=== PATIENT | female | born 1980 | race Caucasian/White ===

== ENCOUNTER → 2019-06-05 | Outpatient (CLI) | payer SELFPAY ==
[2019-06-07 16:46] LABS: HPV Reflexed? NOT INDICATED
== END | disposition home or self-care (01) ==
LOC: LABSPEC 06-06 09:49
PROVIDERS: Visit Provider Obstetrics & Gynecology
DX: Z12.4 Encounter for screening for malignant neoplasm of cervix (principal)
CPT/HCPCS: 87624; 88175; G0145

== ENCOUNTER 2019-06-11 09:09 | Day surgery (SDC) | payer SELFPAY ==
[2019-06-08 15:22] LABS: Hematocrit 43.3 % (37-47); Hemoglobin 14.3 g/dL (12.0-15.0); Mean Corpuscular Volume 84.7 fL (81-99); Mean Platelet Vol. 9.7 fl (6.2-12.0); Platelet Count 308 K/mm3 (150-450); RBC Distribution Width CV 12.3 % (11.6-14.6); RBC Distribution Width SD 37.5 fl (35.1-43.9); Red Blood Count 5.11 M/mm3 (4.2-5.4); White Blood Count 9.2 K/mm3 (4.4-11.0)
[2019-06-08 15:36] LABS: International Normalized Ratio 1.1; Prothrombin Time (Protime)PT. 14.3 SECONDS (11.7-14.9)
[2019-06-08 15:37] LABS: Partial Thromboplast Time 33.2 Seconds (24.1-36.2)
[2019-06-08 15:48] LABS: Creatinine, Serum 0.79 mg/dL (0.55-1.02); EST Glomerular Filtration Rate 86 mL/min (>60); Est Glom Filt Rate - Afr Amer 103 mL/min (>60)
--- NOTE | 2019-06-10 19:59 | HP.PCM_ITS ---
History and Physical Date of Admission: 06/11/19 Surgical History and Physical Luna Saldivar, a 38 year old female 6 1 0 0 6, presents for Vaginal Hysterectomy and AP Repair on June 11, 2019 at 11:00. -- Prolapse Symptoms; Incomplete UV Prolapse -- Luna is referred per Dr Sandoval for uterine prolapse. Pt sts she first noted it 1-2yrs ago, but has significantly worsened in the past 2wks. Uterine Prolapse which began 1-2yrs ago. Luna claims it started gradually and has been present constantly for 1-2yrs. It occurs when standing and any activity. It is located in the vagina. Luna characterizes the quality not painful. Severity is moderate but not worsening; It is aggravated by Any activity. It is relieved by lying down. Associated signs and symptoms are Bulge from vagina and now sore. MEDICATIONS HISTORY: ALLERGIES: No Known Allergies Infections - Chicken pox Illnesses - no serious past illnesses Accidents - None Hospitalizations - Childbirth and see surgery Review of Systems: GENERAL - Denies fever, or chills SKIN - Denies skin changes EYES - Denies visual changes EARS - Denies difficulty hearing NOSE - Denies nasal congestion or bleeding MOUTH - Denies sore throat or difficulty swallowing NECK - Denies pain or swelling RESPIRATORY - Denies shortness of breath or wheezing CARDIOVASCULAR - Denies palpitations or chest pain GASTROINTESTINAL - Denies nausea, vomiting, diarrhea, constipation GENITOURINARY - Denies dysuria, frequency of urination, incontinence of urine MUSCULOSKELETAL - Denies joint or muscle pain NEUROLOGICAL - Denies localized numbness or weakness PSYCHIATRIC - Denies depression or anxiety ENDOCRINE - Denies heat or cold intolerance, weight loss or gain HEMATO-IMMUNOLOGIC - Denies excesive bleeding with cuts SOCIAL HISTORY: Alcohol Use - denies drinking Smoking - denies smoking Diet - no special diet Lifestyle - moderate stress lifestyle and Exercise - active work Seat Belt Use - occasional Employer - Unemployed Job Description - Housewife Illicit Drug Use - denies use of street drugs Sexual Activity - Spouse-Sig Other Name - Noe Spouse-Sig Other Occupation - Furniture [employer] Control - Natural Family Planning FAMILY HISTORY: MENSTRUAL HISTORY: LMP Known?- YesAmount/Duration - 5 days, Regularity - Regular, Frequency - 21days days, LMP - 05/14/19 PAST PREGNANCIES: Total Pregnancies - 7; Full Term Pregnancies - 6; Premature - 1; Abortions, Induced - 0; Abortions, Spontaneous - 0; Ectopics - 0; Multiple Births - 0; Living Children - 6 SURGICAL HISTORY: 1. cholecystectomy, 2005 PHYSICAL EXAM BP- 120/82 Sitting, Right arm, regular cuff Weight- 212.86257 lbs Height- 66.25 inch BMI:34.03 CONSTITUTIONAL - NAD, well nourished, and well developed SKIN - No rash, lesions, or ulcers HEENT - Normocephalic, PERRLA, EOMI NECK - No nodes, no nuchal rigidity and thyroid normal size and texture LYMPH NODES - Palpation of lymph nodes in neck and groins within normal limits LUNGS - CTA x2 without wheezes, crackles or rales CARDIAC - Regular rate and rhythm without rubs, murmurs, or gallops ABDOMEN - Without hepatosplenomegaly, distention, masses, rebound, or guarding; normal bowel sounds; no hernias EXTREMITIES - No edema or calf tenderness NEUROLOGICAL - Cranial nerves II-XII grossly intact PSYCHIATRIC - A and O to time, place, person, mood and affect External Genital Vagina - non-tender without lesions and oen perineum Urethra/Urethral Meatus - non-tender Bladder - non-tender Vagina - vaginal dailey are pink and moist without loss of rugae and no evidence of atropy and cystocele prolapses 2 cm outside introitus with bearing down and rectocele 1 cm outside introitus with bearing down Cervix - without cervical motion tenderness and has normal size and features without evident lesions and prolapses 2 cm outside introitus with bearing down Uterus - multiparous size 6 cm & wt 75-125 g Adnexa - clear without massess or tenderness ASSESSMENT/PLAN: 1. Cystocele Midline, Incomplete Uterovaginal Prolapse and Rectocele Very symptomatic and pt declines expectant management. 3.5 and 3.0 inch Gelhorn tried and first too big and second fell out. Pt and desires we proceed with surgical repair. Discussed RBAs of a Vaginal Hyst and AP Repair and all questions answered.
[2019-06-11] VITALS (15 sets, daily range): BP systolic 89–135; BP diastolic 39–76; PULSE 49–79; RESP 15–18; TEMP 36.3–37.3; O2SAT 94–100; BMI 34.0; BMI 33.9
[2019-06-11 09:33] LABS: Internal QC Validated? YES +Cl - CLEAR BKGD; Pregnancy, Urine Negative Negative
[2019-06-11] MEDS: Lactated Ringers 1,000 ML 100 ML IV ×3 (09:47→15:33)
--- NOTE | 2019-06-11 11:30 | HYST_PTH ---
PATIENT: CALOS TAYLOR LOC: [facility] [place] U#:[id number] AGE/SX: 38/F ROOM: RE06/11/[address]: Dr. Uziel Thorne MD : 1980 BED: DIS: 06/12/2019 SPEC #: [id number] RECD: 06/11/19 15:37 STATUS: NICOLE ADIEL #: [id number] CARISSA: 06/11/19 11:[address]: Uziel Thorne DEPT: SURGICAL PATHOLOGY RECD BY: Lazaro Brush ENTERED: 06/12/19 09:11 SP TYPE: HYSTERECT OTHR DR: Dr. Uziel Sandoval MD Tissues: Uterus, NOS Procedures: Surgery Specimen Level V HEADER OPERATION: Vaginal hysterectomy, anterior and posterior repair PRE-OP DIAGNOSIS: Cystocele midline, incomplete uterovaginal prolapse and rectocele TISSUE SUBMITTED: Uterus, cervix, vaginal mucosa MICROSCOPIC DIAGNOSIS Uterus, hysterectomy: Cervix - mild chronic inflammation. Endometrium - secretory endometrium. Myometrium - superficial adenomyosis. Vaginal mucosa, anterior and posterior repair: Minimal chronic inflammation. No evidence of dysplasia. AM:eleazar 06/13/19 MICROSCOPIC DESCRIPTION Slides are reviewed. GROSS DESCRIPTION Received in fixative is one container labeled with the patient's name and designated uterus. The specimen consists of a uterus with attached cervix measuring 11.5 x 5.5 x 5.5 cm and weighing 129 gm. The ectocervix is unremarkable. The cervical os is oval in contour. The endocervical canal measures 3.5 cm in length and is grossly unremarkable. The triangular endometrial cavity measures 4 x 3 cm. The velvety, pink-michel endometrium measures up to 0.2 cm in thickness. The myometrium measures 2 cm in average thickness and is free of mass lesions. Also present in the specimen container are four irregular fragments of glistening michel mucosa with attached submucosal tissue measuring in aggregate 7 x 6 x 0.5 cm. No mucosal mass lesions are identified. Tag And Label Cutter sections are submitted in seven cassettes as follows: 1 - anterior cervix, 2 - posterior cervix, 3 & 4 - anterior uterine wall, 5 & 6 - posterior uterine wall, 7 - vaginal mucosa. / AM:eleazar 06/12/19 TC:5 CPT: 95298
--- NOTE | 2019-06-11 14:53 | OP.PCM_ITS ---
Report of Operation Date of Procedure: 06/11/19 Pre-Operative Diagnosis: Incomplete Uterovaginal Prolapse, Cystocele, Rectocele Post-Operative Diagnosis: Incomplete Uterovaginal Prolapse, Rectocele, Cystocele Surgery/Procedure Performed:: Vaginal Hysterectomy and Anterior Posterior Repair Description of Surgical Findings:: 8 cm uterus with normal-appearing fallopian tubes and ovaries. Cystocele which protruded to the introitus. Cervix which protruded 2 cm outside the introitus. Rectocele which protruded 1 cm outside the introitus. medical lab specialist: Mike Aguilera Type of Anesthesia:: General - Endotracheal Anesthesiologist: Simone Mortensen Specimen's removed: Uterus and vaginal mucosa Drains: Kennedy to straight drain Estimated Blood Loss (mL): 100 cc Fluids Replaced: Crystalloid Description of Procedure: Surgeon: Uziel Thorne MD, FACOG Indications: This is a 38-year-old grand multiparous patient who is been having problems with uterovaginal prolapse symptoms. Conservative measures have not been helpful. Given this the patient desires that we proceed the above procedure. She has been counseled regarding the risk and indications of this procedure including the possibility of bleeding, infection, and injury to surrounding structures such as bowel bladder. All questions were answered. Procedure: Patient was taken to the operating room where after induction of general anesthesia she was placed in the dorsal lithotomy position and prepped and draped in the usual sterile fashion. A Kennedy catheter was placed. Anterior cervix was grasped with a tenaculum and anterior cervix circumscribed with cautery on a setting of 35 W coagulation. Anterior vaginal mucosa was undermined and anterior peritoneum was easily entered. The posterior aspect of the cervix was circumscribed with a knife and posterior peritoneum easily entered. Progressive bites were taken on either side of the uterine cervix and each pedicle ligated with 0 Vicryl suture. Superior pedicles were ligated ?2 with 0 Vicryl suture and sidewall pedicles were examined and oversewn where necessary with [id number] 0 Vicryl suture to achieve hemostasis. Posterior vaginal cuff was oversewn with running locked 0 Vicryl suture. Hemostasis was noted and peritoneum was closed in a pursestring fashion incorporating superior pedicles into the stitch. Hemostasis was noted. Attention was turned toward the anterior repair portion of the procedure. Anterior vaginal mucosa was undermined and divided and then imbricated toward the midline with interrupted 0 Vicryl sutures. Vaginal mucosa was trimmed and then closed with interrupted 2-0 chromic suture. Vaginal cuff was then closed front to back with interrupted [id number] 0 Vicryl suture. Hemostasis was noted. Attention was turned toward the posterior repair portion of the procedure. Remnants of the hymenal ring were grasped with Allises and a V-shaped incision was made in the perineum. Rectovaginal mucosa was then undermined divided and then imbricated toward the midline with interrupted 0 Vicryl suture. Vaginal mucosa was trimmed and then closed with running locked 2-0 chromic suture. Remnants of the bulbocavernosus muscles were identified and brought toward the midline with a single [id number] 0 Vicryl suture and perineum was closed in the usual fashion with running and subcuticular, and [id number] 2-0 chromic suture. Hemostasis was noted. Kenendy catheter was again opened and clear yellow urine was noted. Vagina was packed with one half roll of iodoform tape. Patient tolerated the procedure well was taken to recovery room in satisfactory condition; sponge instrument and needle counts were all reportedly correct. Estimated blood loss for the case was 100 cc. Cefotan 2 g IV was given prior to beginning the operative procedure. There were no apparent complications of the surgery. Specimen to pathology was uterus and vaginal mucosa. Grafts/Implants Used: None - Complications None - Admit VTE Documentation VTE Present on Admission: Yes VTE Mechan Device Prophylaxis: SCD's VTE Pharm Prophylaxis ordered?: Yes
--- NOTE | 2019-06-11 14:59 | DCINST_ITS ---
Discharge Diet: No Restrictions Discharge Activity: Return to Normal Activity, May Not Drive - while taking narcotic pain medications., May Shower, May Take a Tub Bath May resume sexual activity in: 6-8 weeks Call your doctor if your incision/area has: Continuous Slow Oozing, Sudden Inc reased Bleeding, Increased Pain/ Swelling, Increased Redness, Foul Smelling Discharge Call your doctor if you observe: Fever of 101 or Higher, Inability to urinate, Inability to have a bowel movement, Using more than one pad per hour Allergies/Adverse Reactions: Allergies No Known Allergies Allergy (Verified 06/11/19 09:22) Medications to take at Discharge Docusate Sodium [Colace] 100 mg PO BID PRN PRN #60 cap 06/11/19 Oxycodone [Oxyir] 5 mg PO Q6H PRN PRN 7 Days #10 tab 06/11/19 The following prescriptions were given: Docusate Sodium [Colace] 100 mg PO BID PRN PRN #60 cap PRN Reason: Constipation Prescription Printed Oxycodone [Oxyir] 5 mg PO Q6H PRN PRN 7 Days #10 tab PRN Reason: Pain Score 6-10/10 Prescription Printed Primary Care Physician: Uziel Sandoval MD [Primary Care Provider] - Test Results: Test results from this visit will be discussed in further detail at your follow- up appointment, if applicable. Please Follow Up With: Uziel Thorne MD When: 2 to 3 weeks
[2019-06-11] MEDS: Dextrose 5%-Lactated Ringers 1,000 ML 150 ML IV (17:30)
[2019-06-11] MEDS: Ketorolac 30 MG/ML Syringe IV (17:32)
[2019-06-11] MEDS: Enoxaparin 30 MG/0.3 ML Syringe SC (17:32)
[2019-06-11] MEDS: oxyCODONE 5 MG Tablet PO (20:07)
[2019-06-11] MEDS: HYDROmorphone 1 MG/ML Syringe 0.5 MG IV (21:48)
[2019-06-12] MEDS: Ketorolac 30 MG/ML Syringe IV ×2 (00:08→05:07)
[2019-06-12] MEDS: Dextrose 5%-Lactated Ringers 1,000 ML 150 ML IV (00:12)
[2019-06-12 02:18] VITALS: BP 106/59; PULSE 61; RESP 18; TEMP 36.7; O2SAT 96
[2019-06-12] MEDS: 0.9% NaCl Peripheral Flush Adult/Peds IV (05:14)
[2019-06-12 05:45] LABS: Hematocrit 36.6 % (37-47); Hemoglobin 12.3 g/dL (12.0-15.0); Mean Corp Hgb Conc 33.6 g/dL (32-36); Mean Corpuscular Volume 86.3 fL (81-99); Platelet Count 295 K/mm3 (150-450); RBC Distribution Width CV 12.4 % (11.6-14.6); Red Blood Count 4.24 M/mm3 (4.2-5.4)
[2019-06-12 05:49] LABS: Creatinine, Serum 0.87 mg/dL (0.55-1.02); EST Glomerular Filtration Rate 77 mL/min (>60); Est Glom Filt Rate - Afr Amer 93 mL/min (>60); Estimated Creatinine Clearance 80.47 ml/min
--- NOTE | 2019-06-12 06:39 | PCM.PN.OB ---
Subjective: Patient without complaints. Tolerating diet well. Kennedy catheter is out. Minimal vaginal bleeding. - Physical Exam Vital Signs Temp Pulse Resp BP Pulse Ox 98.1 F 61 18 106/59 L 96 06/12/19 02:18 06/12/19 02:18 06/12/19 02:18 06/12/19 02:18 06/12/19 02:18 Oxygen Delivery Method Room Air Weight: 210 lb Body Mass Index (BMI) 33.9 Intake and Output for Last 24 Hours 06/10/19 06/11/19 06/12/19 23:59 23:59 23:59 Intake Total 3325 / 3325 1489.5 / 1489.5 Output Total 610 / 610 925 / 925 Balance 2715 / 2715 564.5 / 564.5 Laboratory Tests Past 24 Hrs 06/11/19 06/12/19 06/12/19 09:20 05:06 05:06 WBC 15.0 H RBC 4.24 Hgb 12.3 Hct 36.6 L MCV 86.3 MCH 29.0 MCHC 33.6 RDW Std Deviation 39.0 RDW Coeff of Kush 12.4 Plt Count 295 MPV 10.0 Creatinine 0.87 Estim Creat Clear Calc 80.47 Est GFR (MDRD) Af Amer 93 Est GFR (MDRD) Non-Af 77 Urine Test Negative Vaginal pack is out with minimal vaginal bleeding noted. Hemoglobin and creatinine okay. Medical Necessity - Tobacco Use Smoking Status: Never smoker Tobacco Use: Non-smoker Assessment/Plan Doing well postoperative day #1 status post vaginal hysterectomy and anterior posterior repair. Will release to home with routine instructions.
[2019-06-12] MEDS: oxyCODONE 5 MG Tablet PO ×2 (06:45→17:43)
[2019-06-12 07:38] VITALS: O2SAT 95
[2019-06-12 07:40] VITALS: BP 110/58; PULSE 57; RESP 16; TEMP 37.3; O2SAT 97
[2019-06-12] MEDS: Ketorolac 10 MG Tablet PO ×2 (09:02→17:44)
[2019-06-12] MEDS: Docusate Sodium 100 MG Capsule PO (09:04)
[2019-06-12] MEDS: Acetaminophen 500 MG Tablet 1000 MG PO (10:35)
[2019-06-12 13:42] VITALS: BP 104/55; PULSE 55; RESP 16; TEMP 37.3; O2SAT 99
== END 2019-06-12 18:05 | disposition home or self-care (01) ==
LOC: SDC 09:11 → AC 09:13 → MS3 09:19
PROVIDERS: Anesthesiology; Family Provider Family Medicine; PCP Family Medicine; Referring Provider Obstetrics & Gynecology; Visit Provider Obstetrics & Gynecology
PROC: (CPT 58260; principal; 2019-06-11 11:10)
DX: N80.0 Endometriosis of uterus (principal); N72 Inflammatory disease of cervix uteri; N76.0 Acute vaginitis; N81.2 Incomplete uterovaginal prolapse
CPT/HCPCS: 00942; 57260; 58260; 36415; 81025; 82565; 85027; 85610; 85730; 86850; 86900; 86901; 88307; J7120; A4216; J2405